=== PATIENT | male | born 1950 | race Caucasian/White ===

== ENCOUNTER → 2024-09-24 | Outpatient (BNVA) | payer MEDICARE, SELFPAY | END | disposition home or self-care (01) | PROVIDERS: PCP Physician Assistant; Referring Provider Physician Assistant; Visit Provider Urology | DX: Z76.89 Persons encountering health services in other specified circumstances (principal) | CPT/HCPCS: 81003; 99203; G0463 ==

== ENCOUNTER → 2024-10-26 | Outpatient (CLI) | payer MEDICARE, MEDICAID, SELFPAY | END | disposition home or self-care (01) | PROVIDERS: PCP Physician Assistant; Referring Provider Urology; Visit Provider Urology | DX: Z01.89 Encounter for other specified special examinations (principal) | CPT/HCPCS: 36415; 84153 ==

== ENCOUNTER → 2025-01-19 | Outpatient (CLI) | payer MEDICARE, MEDICAID, SELFPAY ==
--- NOTE | 2025-01-19 10:00 | XR_ITS ---
Examination: Transrectal prostate sonography TECHNIQUE: Grayscale sonographic images transrectal of the prostate INDICATIONS: Testicular pain radiating to the rectal region 6 months, history hydroceles Date and time: January 19, 2025 1027 hours FINDINGS: Prostate 3.5 x 1.8 x 5.3 cm volume 17 cc Prostate calcifications Mid prostate solid nodule 14 x 9 x 15 mm Anterior left prostate nodule 7 x 6 x 10 mm Posterior left prostate nodule 13 x 10 x 11 mm IMPRESSION: 3 prostate nodules as above
== END | disposition home or self-care (01) ==
PROVIDERS: PCP Physician Assistant; Referring Provider Physician Assistant; Visit Provider Physician Assistant
DX: N40.2 Nodular prostate without lower urinary tract symptoms (principal)
CPT/HCPCS: 76872

== ENCOUNTER → 2025-02-18 | Outpatient (CLI) | payer MEDICARE, MEDICAID, SELFPAY ==
--- NOTE | 2025-02-18 11:30 | XR_ITS ---
EXAMINATION: Testicular sonography complete TECHNIQUE: Grayscale sonographic images testes, assessment arterial inflow and venous outflow Doppler spectral analysis and color flow analysis Date and time: February 18, 2025, 11:12 a.m. INDICATIONS: History hydroceles and testicular pain 8 months FINDINGS: Right testis 4.1 cm epididymis 12 mm Arterial flow the testicle. No testicular mass Mild hydrocele Left testis 4.0 cm epididymis 14 mm Solid nodule inferior to the left epididymis 12 x 11 mm Arterial flow of the testicle. 2 mm testicular cyst Mild hydrocele with internal echoes IMPRESSION: No testicular torsion or testicular mass Solid mass inferior to the right epididymis 12 x 7 x 11 mm, recommend urology consultation, small solid tumor mass would be included in differential
== END | disposition home or self-care (01) ==
PROVIDERS: PCP Physician Assistant; Referring Provider Physician Assistant; Visit Provider Physician Assistant
DX: R59.0 Localized enlarged lymph nodes (principal)
CPT/HCPCS: 76870

== ENCOUNTER → 2025-02-22 | Outpatient (CLI) | payer MEDICARE, MEDICAID, SELFPAY ==
--- NOTE | 2025-02-22 13:00 | XR_ITS ---
Examination: Bone densitometry Date and time of exam: February 22, 2025, 1311 hours INDICATIONS: 80-year-old male with diagnosis age-related osteoporosis Technique: Lumbar spine and hip total bone mineralization values of an calculated. Peak reference and age match control results have been displayed. Findings: Lumbar spine total bone mineralization is 0.928 gm/cm2. This is 1.5 standard deviations below peak reference. This is 0.5 standard deviations below age-matched controls. Hip total bone mineralization is 0.603 gm/cm2 This is 2.8 standard deviations below peak reference. This is 2.1 standard deviations below age-matched controls Impression: There is osteopenia based on lumbar spine measurements. There is osteoporosis based on hip measurements
== END | disposition home or self-care (01) ==
LOC: CDIM 12:47
PROVIDERS: Referring Provider Physician Assistant; Visit Provider Physician Assistant
DX: M81.0 Age-related osteoporosis without current pathological fracture (principal); M85.88 Other specified disorders of bone density and structure, other site
CPT/HCPCS: 77080

== ENCOUNTER → 2025-03-26 | Outpatient (CLI) | payer MEDICARE, MEDICAID, SELFPAY ==
--- NOTE | 2025-03-26 10:10 | XR_ITS ---
EXAMINATION: Thoracic spine 2 views TECHNIQUE: Lateral, coned lateral upper dorsal spine 2 views Date and time: March 26, 2025, 1057 hours INDICATIONS: Chronic back pain 15 years. FINDINGS: Severe osteopenia. Mild kyphosis dorsal spine No acute fracture. Moderate diffuse thoracic degenerative disc disease IMPRESSION: Moderate diffuse thoracic degenerative disc disease
--- NOTE | 2025-03-26 10:10 | XR_ITS ---
EXAMINATION: PA lateral chest 2 views TECHNIQUE: Upright PA lateral chest 2 views Date and time: March 26, 2025, 10:40 a.m., comparison 02/07/2017 INDICATIONS: Smoking history 35 years. FINDINGS: Significant hyperexpansion. Normal heart size. No pneumonia or pulmonary edema or pulmonary masses IMPRESSION: COPD
--- NOTE | 2025-03-26 10:10 | XR_ITS ---
Examination: Forearm, left, 2 views. Technique: Forearm, AP, lateral 2 views Date and time of exam: March 26, 2025, 1030 hours INDICATIONS: Left forearm pain 25 years. FINDINGS: Severe osteopenia. Healed fractures radial and ulnar shafts with orthopedic hardware No acute fracture No cortical bone destruction Significant narrowing radiocarpal joint IMPRESSION: Healed fractures radial and ulnar shafts No acute fracture No cortical bone destruction
--- NOTE | 2025-03-26 10:16 | XR_ITS ---
EXAMINATION: Lumbar spine 3 views TECHNIQUE: AP lateral, lateral lower lumbar spine 3 views Date and time: March 26, 2025, 1055 hours, comparison December 06, 2008 INDICATIONS: Chronic back pain beginning 15 years ago. FINDINGS: Severe osteopenia Moderate to advanced diffuse lumbar degenerative disc disease, most severe at L5-S1 No spondylolisthesis No fracture IMPRESSION: Moderate to advanced diffuse lumbar degenerative disc disease
--- NOTE | 2025-03-26 10:16 | XR_ITS ---
EXAMINATION: Cervical spine 4 views TECHNIQUE: AP, lateral, swimmer's lateral, coned AP odontoid cervical spine 4 views Date and time: March 26, 2025, 10:30 a.m. INDICATIONS: Neck pain 15 years. FINDINGS: Severe osteopenia No cervical fracture Intact odontoid Mild to moderate disc narrowing C3-C4, C5-C6 Heavy carotid vascular calcification IMPRESSION: Mild to moderate degenerative disc disease C3 3 C4, C5-C6 Heavy carotid vascular calcification, consider correlation with carotid Doppler ultrasound follow-up
== END | disposition home or self-care (01) ==
LOC: SDIM 09:50
PROVIDERS: PCP Physician Assistant; Referring Provider Physician Assistant; Visit Provider Physician Assistant
DX: M79.602 Pain in left arm (principal); J44.9 Chronic obstructive pulmonary disease, unspecified; M51.34 Other intervertebral disc degeneration, thoracic region; M50.31 Other cervical disc degeneration, high cervical region; I65.29 Occlusion and stenosis of unspecified carotid artery; M51.360 Other intervertebral disc degeneration, lumbar region with discogenic back pain only
CPT/HCPCS: 71046; 72040; 72070; 72100; 73090

== ENCOUNTER → 2025-04-13 | Outpatient (BNVA) | payer MEDICARE, MEDICAID, SELFPAY | END | disposition home or self-care (01) | PROVIDERS: Visit Provider Urology | DX: N50.89 Other specified disorders of the male genital organs (principal); N41.9 Inflammatory disease of prostate, unspecified; N40.1 Benign prostatic hyperplasia with lower urinary tract symptoms; N13.8 Other obstructive and reflux uropathy; I10 Essential (primary) hypertension; F41.9 Anxiety disorder, unspecified | CPT/HCPCS: 81003; 99212; G0463 ==